=== PATIENT | male | born 1970 | race Caucasian/White ===

== ENCOUNTER 2020-09-05 20:57 | Emergency (ER) | payer BC, SELFPAY ==
[2020-09-05 20:58] VITALS: BP 143/98; PULSE 89; RESP 15; TEMP 36.4; O2SAT 97; BMI 32.0
[2020-09-05 21:51] LABS: Absolute Lymphocyte Count 2.45 X10^3/uL (0.83-4.51); Absolute Neutrophil Count 4.5 X10^3/uL (2.0-7.7); Basophil# 0.05 X10^3/uL; Basophil% 0.6 % (0-1); Eosinophils% 3.8 % (0-5); Hematocrit 45.3 % (40-54); Hemoglobin 15.3 g/dL (13.0-16.5); Lymphocyte # 2.45 X10^3/ul (0.83-4.51); Lymphocyte % 30.7 % (19-41); Mean Corp Hgb Conc 33.8 g/dL (32-36); Mean Corpuscular Hgb 29.7 pg (27.0-32.0); Mean Platelet Vol. 10.5 fl (6.2-12.0); Monocyte# 0.64 X10^3/uL; NRBC Flagged by Analyzer 0 % (0-5); Neutrophil # 4.54 X10^3/uL (2.7-7.7); Neutrophil % 56.8 % (47-70); Platelet Count 217 K/mm3 (150-450); RBC Distribution Width CV 13.1 % (11.6-14.6); RBC Distribution Width SD 42.3 fl (35.1-43.9); Red Blood Count 5.15 M/mm3 (4.6-6.2)
[2020-09-05 21:53] LABS: Anion Gap 7 (5-15); BUN 21 mg/dL (7-18); BUN/Creat Ratio 12.7 RATIO (10-20); Calcium,Total 8.8 mg/dL (8.5-10.1); Chloride 104 mmol/L (98-107); Creatinine, Serum 1.66 mg/dL (0.70-1.30); EST Glomerular Filtration Rate 46 mL/min (>60); Est Glom Filt Rate - Afr Amer 56 mL/min (>60); Estimated Creatinine Clearance 58.83 ml/min; Glucose 98 mg/dL (74-106); Potassium 3.9 mmol/L (3.5-5.1); Sodium Level 139 mmol/L (136-145)
--- NOTE | 2020-09-05 22:01 | CT_ITS ---
HISTORY: blunt abdominal trauma TECHNIQUE: Helically acquired images were obtained of the abdomen and pelvis following the intravenous administration of 100mL Isovue-300 Iodinated contrast. No Oral contrast was administered. Coronal and sagittal reformats obtained. A radiation dose optimization technique was used for this scan. COMPARISON: None FINDINGS: # of images incl. paperwork: [id number] LUNG BASES: Unremarkable. Linear atelectasis in the left lung base. LIVER T BILIARY TRACT: Unremarkable gallbladder. No acute hepatic finding. ADRENAL GLANDS: Unremarkable. SPLEEN: Unremarkable. PANCREAS: Unremarkable. KIDNEYS/URETERS/BLADDER: No hydronephrosis or perinephric inflammation. Unremarkable ureters and bladder. LYMPH NODES: No suspicious adenopathy. STOMACH, SMALL AND LARGE BOWEL: No acute gastric finding. No small bowel obstruction or gross wall thickening. Normal appendix. No acute colonic finding. ASCITES/FREE AIR: No free fluid or free air. AORTA: Atherosclerosis without ectasia. PELVIS: Unremarkable. MUSCULOSKELETAL: No acute osseous finding. Bilateral pars defects L5 with grade 1 anterolisthesis L5 on S1 with moderate bilateral neuroforaminal stenosis. Fat-containing umbilical hernia without inflammation. CT/Abdomen/Pelvis W IV Cont ONLY IMPRESSION: No evidence of acute injury. Bilateral pars defects L5 with grade 1 anterolisthesis L5 on S1. Moderate associated bilateral neural foraminal stenosis. Individualized dose optimization techniques were used for this CT. at 2328 Reported and signed by: Tenzin Lozano MD Electronically Signed: Tenzin Lozano MD at 23:26 EDT Tel , Service support ,
--- NOTE | 2020-09-05 22:44 | EX.ED.DYSGE1 ---
HPI History of Present Illness Chief Complaint: Abd Pain Informant: patient and spouse/S.O. Narrative Narrative: 50-year-old male was pushing a wheelbarrow up the hill when it got stuck in the handle the wheel barrel hit him in the left middle left upper quadrant of his abdomen. He notes pain since that time. Pain with movement bending over. He denies any hematuria. No syncope or near syncope. PFSH PFSH no medical history Home Medications NK 09/05/20 [History Last Taken Unknown] Allergy/AdvReac Type Severity Reaction Status Date / Time No Known Allergies Allergy Verified 09/05/20 20:58 Social History (Updated 09/05/20 @ 22:[address] Darwin Duarte, DO) Smoking Status: Never smoker substance use type: does not use ROS ROS ED Constitutional Constitutional ED: Denies chills or weight loss Eyes Eyes: Denies change in vision or diplopia ENT ENT ED: Denies ear pain, rhinorrhea or sore throat Cardiovascular Cardiovascular: Denies chest pain, orthopnea, palpitations or racing heartbeat Respiratory/Chest Respiratory/Chest: Denies cough, dyspnea or orthopnea Gastrointestinal Gastrointestinal: Reports abdominal pain; Denies diarrhea, nausea or vomiting Genitourinary Genitourinary ED: Denies dysuria, hematuria or urinary frequency Musculoskeletal Musculoskeletal: Denies arthralgias or myalgias Integumentary Denies abscess or rash Neurologic Neurologic: Denies headache(s) or weakness Psychiatric Psychiatric: Denies anxiety, depression, suicidal ideation or suicidal thoughts Endocrine Endocrinology: Denies polydipsia, polyphagia or polyuria Allergic/Immunologic Allergic/Immunologic ED: Denies mouth swelling, tongue swelling or urticaria EXAM Physical Exam Const Vital Signs: 09/05/20 20:58 Temperature 97.6 F L Temperature Source Temporal Pulse Rate 89 Respiratory Rate 15 Blood Pressure 143/98 H Blood Pressure Mean 113 Pulse Ox 97 Oxygen Delivery Method Room Air Positive well nourished and well developed General Appearance ED: well developed HEENT Reports normocephalic, head/scalp atraumatic and moist mucous membranes Eyes PERRL and EOMs intact bilaterally Neck no lymphadenopathy, supple and no JVD Resp normal respiratory effort and clear to auscultation bilaterally Cardio regular rate, regular rhythm and no murmurs GI GI Narrative: Patient has a circular contusion in the left middle quadrant of his abdomen. Left middle quadrant left upper quadrant tender to palpation. No significant ecchymosis seen. No flank ecchymosis seen. Auscultation: normoactive bowel sounds Palpation: soft Back/Spine no CVA tenderness and normal ROM Extremity normal to inspection General Extremety ED: Negative for edema General Extremity: Negative for edema Neuro oriented x3 and CN's II-XII intact bilaterally Sensorium / Orientation: alert Motor Exam: strength 5/5 throughout Psych mental status grossly normal Mood & Affect: Negative for depressed or tearful Skin no rashes or lesions noted and no wounds MDM MDM MDM Narrative Medical decision making narrative: Creatinine 1.66 with a BUN of 21. Hemoglobin 15.3 white count of 8. CT the abdomen pelvis with IV contrast was obtained. I do not see any obvious solid organ injury. We will treat this is abdominal wall contusion return if worsening or concerns Lab Data Attestation: I reviewed the patient's lab results. Labs: Laboratory Results - last 24 hr 09/05/20 09/05/20 21:33 21:33 WBC 8.0 RBC 5.15 Hgb 15.3 Hct 45.3 MCV 88.0 MCH 29.7 MCHC 33.8 RDW Std Deviation 42.3 RDW Coeff of [place] 13.1 Plt Count 217 MPV 10.5 Immature Gran % (Auto) 0.100 Neut % (Auto) 56.8 Lymph % (Auto) 30.7 [place] % (Auto) 8.0 Eos % (Auto) 3.8 Baso % (Auto) 0.6 Absolute Neuts (auto) 4.5 Absolute Lymphs (auto) 2.45 Nucleated RBC % 0 Sodium 139 Potassium 3.9 Chloride 104 Carbon Dioxide 28.0 Anion Gap 7 BUN 21 H Creatinine 1.66 H Estim Creat Clear Calc 58.83 Est GFR (MDRD) Af Amer 56 L Est GFR (MDRD) Non-Af 46 L BUN/Creatinine Ratio 12.7 Glucose 98 Calcium 8.8 Radiography Diagnostic Testing: Radiology Impression Abdomen/Pelvis CT 09/05/20 22:01 IMPRESSION: No evidence of acute injury. Bilateral pars defects L5 with grade 1 anterolisthesis L5 on S1. Moderate associated bilateral neural foraminal stenosis. Individualized dose optimization techniques were used for this CT. at 2328 Reported and signed by: Tenzin Lozano MD Electronically Signed: Tenzin Lozano MD at 23:26 EDT Tel , Service support , Discharge Plan Triage Chief Complaint: Abd Pain ED Provider: Darwin Duarte Dx/Rx/DC Orders Clinical Impression: Abdominal wall contusion Instructions: ED Abd Injury Blunt Benign Prescriptions: No Action NK RF: 0 Primary Care Provider: Tadeo Gibbons Referrals: Tadeo Gibbons MD [Primary Care Provider] - As Needed Disposition Disposition: Home, Self Care
[2020-09-05 23:46] VITALS: BP 143/98; PULSE 89; RESP 15; TEMP 36.4; O2SAT 97
== END 2020-09-05 23:46 | disposition home or self-care (01) ==
PROVIDERS: Emergency Provider Emergency Medicine; PCP Family Medicine
DX: S30.1XXA Contusion of abdominal wall, initial encounter (principal); W22.09XA Striking against other stationary object, initial encounter; Y93.01 Activity, walking, marching and hiking; Y92.89 Other specified places as the place of occurrence of the external cause; Y99.8 Other external cause status
CPT/HCPCS: 74177; 80048; 85025; 99283; Q9967; A4216

== ENCOUNTER → 2021-02-18 08:53 | Outpatient (CLI) | payer BC, SELFPAY | PROVIDERS: PCP Family Medicine; Referring Provider Physician Assistant Medical; Visit Provider Physician Assistant Medical | DX: Z11.52 Encounter for screening for COVID-19 (principal) | CPT/HCPCS: 87635; U0005; U0003 ==

== ENCOUNTER 2022-11-13 19:52 | Emergency (ER) | payer BC, SELFPAY ==
[2022-11-13 19:54] VITALS: BP 133/100; PULSE 88; RESP 16; TEMP 36.1; O2SAT 97; BMI 29.1
[2022-11-13 19:58] VITALS: BP 133/100; PULSE 88; RESP 16; TEMP 36.1; O2SAT 97
--- NOTE | 2022-11-13 20:50 | RAD_ITS ---
STUDY: X-RAY - RIGHT FOOT CLINICAL: Male, 52 years old. Injury/Pain TECHNIQUE: 3 view(s) of the foot. COMPARISON: None. FINDINGS: Normal talus, calcaneus, and tarsal bones. Normal visualized subtalar, talonavicular, calcaneocuboid, tarsal and tarsometatarsal articulations. Normal metatarsi. Normal metatarsophalangeal joint of the great toe. Normal tibial and fibular sesamoid bones. Normal interphalangeal joint of the great toe. Normal phalanges of the great toe. Normal second through fifth metatarsophalangeal joints. Normal interphalangeal joints and phalanges of the lesser toes. Mild soft tissue swelling at the ankle and dorsum of the foot. There is no demonstrated fracture. RAD/Foot min 3 Views IMPRESSION: Mild soft tissue swelling otherwise no acute fracture or subluxation. Electronically Signed: Geneva Mendez MD at 21:18 EDT ,
--- NOTE | 2022-11-13 21:35 | EDS_ITS ---
HPI History of Present Illness HPI Narrative: Patient presents with pain in his right foot that began tonight while playing pickle ball. Patient states that he stopped to plant and felt a soft pop in the bottom of his right foot. Patient states the pain has been persistent. Patient states the pain is dull ache. Patient states it is worse with weightbearing. Patient denies any paresthesias or weakness. Patient denies any other injuries. Chief Complaint: Lower Extremity Injury Informant: patient Onset/Context/Timing Onset: Today Context: Onset with activity (Playing pickle ball) and Sudden Onset Timing: Continuous Quality of Pain: Dull Location: Right foot Worsened by: Weightbearing Relieved by: Rest Associated Symptoms Associated Symptoms: Negative for Parasthesia, Weakness or Loss of Funtion PFSH PFS Medical History (Updated 11/13/22 @ 21:[address] Rik Porter DO) Tear meniscus knee Home Medications NK 09/05/20 [History Last Taken Unknown] Allergy/AdvReac Type Severity Reaction Status Date / Time No Known Allergies Allergy Verified 11/13/22 19:54 Surgical History (Updated 11/13/22 @ 21:[address] Rik Porter DO) Hx of arthroscopic knee surgery Social History Smoking Status: Never smoker substance use type: does not use ROS ROS ED Constitutional Constitutional ED: Denies chills or fever(s) Eyes Eyes: Denies blurry vision or change in vision ENT ENT ED: Denies rhinorrhea or sore throat Cardiovascular Cardiovascular: Denies chest pain or palpitations Respiratory/Chest Respiratory/Chest: Denies cough or dyspnea Gastrointestinal Gastrointestinal: Denies nausea or vomiting Genitourinary Genitourinary ED: Denies dysuria or hematuria Musculoskeletal Musculoskeletal: Denies back pain or neck pain Integumentary Denies abscess or rash Neurologic Neurologic: Denies headache(s) or weakness Allergic/Immunologic Allergic/Immunologic ED: Denies mouth swelling or urticaria EXAM Physical Exam Const Vital Signs: 11/13/22 19:54 11/13/22 19:58 Temperature 96.9 F L 96.9 F L Temperature Source Temporal Temporal Pulse Rate 88 88 Respiratory Rate 16 16 Blood Pressure 133/100 H 133/100 H Blood Pressure Mean 111 111 Pulse Ox 97 97 Oxygen Delivery Method Room Air Room Air Positive well nourished and well developed General Appearance ED: well developed and NAD HEENT Reports moist mucous membranes Neck full ROM and supple Extremity Extremity Narrative: Tenderness over the plantar aspect of the right foot. There is mild edema. There is no ecchymosis. There is no deformity noted. Range of motion was slightly limited in dorsiflexion of the right foot secondary to pain. Sensation was intact to light touch in all digits. Capillary refill is less than 2 seconds in all digits. There is a strong pedal pulse noted. Achilles tendon is intact. Cotto test was negative. Neuro oriented x3, CN's II-XII intact bilaterally, moves all extremities and no sensory deficits noted Sensorium / Orientation: alert Motor Exam: strength 5/5 throughout Psych mental status grossly normal MDM MDM MDM Narrative Medical decision making narrative: Differential diagnosis includes plantar fascia tear, avulsion fracture, and sprain. X-rays of the right foot will be obtained to assess for fracture. Radiography Diagnostic Testing: Clinical Impression(s) from Imaging Studies Foot X-Ray 11/13/22 20:50 IMPRESSION: Mild soft tissue swelling otherwise no acute fracture or subluxation. Electronically Signed: Geneva Mendez MD at 21:18 EDT Reading Location ID and State: [facility] / [place] , Service support , X-rays of the right foot were obtained. There are 3 views. On my independent interpretation, there is no acute fracture. There is no dislocation. There is some mild soft tissue swelling. Radiologist also interpreted the x-rays and agrees. Treatment and Re-Evaluation Narrative: Patient was advised of his findings. Patient was advised that this is most likely a plantar fascia tear. Patient was given a walking boot. Patient was instructed to ice and elevate the right foot. Patient was instructed to take Tylenol or ibuprofen as needed for pain. Patient was instructed to follow-up with his primary care physician in 5 to 7 days. Patient understood and was agreeable with the plan. All questions were answered. Discharge Plan Triage Chief Complaint: Lower Extremity Injury ED Provider: Rik Porter Dx/Rx/DC Orders Clinical Impression: Rupture of plantar fascia of right foot Instructions: ED Foot Sprain Prescriptions: No Action NK Primary Care Provider: Tadeo Gibbons Referrals: Tadeo Gibbons MD [Primary Care Provider] - 5-7 Days Filiberto Hooper DPM [Med Staff - Active Staff] - 3-5 Days Disposition Disposition: Home, Self Care
== END 2022-11-13 21:57 | disposition home or self-care (01) ==
PROVIDERS: Emergency Provider Emergency Medicine; PCP Family Medicine; Visit Provider Emergency Medicine
DX: S96.811A Strain of other specified muscles and tendons at ankle and foot level, right foot, initial encounter (principal); X58.XXXA Exposure to other specified factors, initial encounter; Y93.73 Activity, racquet and hand sports
CPT/HCPCS: 73630; 99283